=== PATIENT | female | born 1955 | race Two or more races ===

== ENCOUNTER 2017-12-03 19:27 | Emergency (ER) | payer SELFPAY ==
[~2017-12-03] VITALS: Ht 154.9 cm; Wt 65.8 kg
[~2017-12-03 19:27] MED LIST: CYCLOBENZAPRINE10 MG ORAL; GLUCOPHAGE1000 MG ORAL; GLUCOPHAGE850 MG ORAL; IBUPROFEN400 MG ORAL; KEFLEX500 MG ORAL; LISINOPRIL5 MG ORAL; NAPROXEN500 M2 ORAL; PHENAZOPYRIDIN100 MG ORAL
[2017-12-03] MEDS ORDERED: Cyclobenzaprine 10mg Tab ORAL ONE (19:30)
[2017-12-03] MEDS ORDERED: IBUPROFEN600 MG ORAL (19:31)
[2017-12-03] MEDS ORDERED: CYCLOBENZAPRINE10 MG ORAL (19:31)
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
[2017-12-03 21:07] VITALS: BP 146/85
[2017-12-03 21:27] VITALS: BP 146/85
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
== END 2017-12-03 21:45 | disposition home or self-care (01) ==
LOC: EDBD 19:27 → EMR 21:40
DX: R51 Headache (principal); M54.2 Cervicalgia; V43.62XA Car passenger injured in collision with other type car in traffic accident, initial encounter; Y92.410 Unspecified street and highway as the place of occurrence of the external cause; I10 Essential (primary) hypertension; E11.9 Type 2 diabetes mellitus without complications; Z98.1 Arthrodesis status
CPT/HCPCS: 70450; 72125; 99284

== ENCOUNTER 2018-07-28 15:01 | Emergency (ER) | payer BC ==
[~2018-07-28] VITALS: Ht 160 cm; Wt 77.1 kg
[~2018-07-28 15:01] MED LIST changes: +IBUPROFEN600 MG ORAL
[2018-07-28] MEDS ORDERED: HYDROcodone/Acetamin 7.5/325 tab ORAL ONE (16:00)
--- NOTE | 2018-07-28 16:30 | Diagnostic Imaging Report ---
Indication: Pain Knee pain/trauma 3 views of the right knee were obtained. Findings: No acute fracture, malalignment, or joint effusion are identified. Bones are osteopenic. Joint space is relatively well-maintained. Impression: Negative for acute findings.
--- NOTE | 2018-07-28 16:33 | Diagnostic Imaging Report ---
Indications: hip pain Findings: Two views of the right hip were obtained. No acute fracture is demonstrated. Alignment of the hip is within normal limits. Soft tissues are unremarkable. Impression: Negative for acute injury.
--- NOTE | 2018-07-28 16:48 | Emergency Room Report ---
History of Present Illness General Chief Complaint: Lower Extremity Injury Source: Patient Present Illness HPI 62-year-old female presents to the emergency department complaining of 10 out of 10 in severity pain to the lateral aspect of the right knee with moderate swelling, bruising and inability to bear weight. Patient reports that 2 days ago she slipped on the floor and landed on the bilateral knees sustaining bruising. Patient states that today however she was walking and her knee gave out and she had acute onset of her symptoms. Patient states that she did not fall to the ground today she was able to catch her self. Patient denies hitting her head, loss of consciousness, midline neck or back pain. She denies previous injury to this extremity other than fall prior to today. Pt also reports pain to the lateral aspect of the right hip as well. Denies numbness tingling or loss of sensation or gross motor movements of the extremities, incontinence of bowel or bladder. Denies CP, Palpitations, LOC, AMS, dizziness, Changes in Vision, weakness or a sudden severe headache. Allergies: Coded Allergies: No Known Allergies (Unverified , 12/27/15) Patient History Past Medical History: see triage record Past Surgical History: none Pertinent Family History: none Now: No Reviewed Nursing Documentation: PMH: Agreed; PSxH: Agreed Nursing Documentation-PMH Hx Hypertension: Yes Hx Diabetes: Yes Hx Cancer: No Hx Gastrointestinal Problems: No Review of Systems All Other Systems: negative except mentioned in HPI Physical Exam Vital Signs Date Time Temp Pulse Resp B/P (MAP) Pulse Ox O2 Delivery O2 Flow Rate FiO2 07/28/18 15:21 98.1 93 18 145/85 99 Room Air Sp02 EP Interpretation: reviewed, normal General Appearance: alert, GCS 15, non-toxic, moderate distress Head: normocephalic, atraumatic Eyes: bilateral eye normal inspection, bilateral eye PERRL ENT: hearing grossly normal, normal voice Neck: full range of motion, no bony tend Respiratory: lungs clear, normal breath sounds, speaking full sentences Cardiovascular #1: regular rate, rhythm Musculoskeletal: back normal, gait/station normal, normal range of motion, tender - anteriolateral TTP, Swelling and bruising to the Right knee, pt. unable to tolerate ligament testing. pt. also has some lateral right hip pain, no discrepancy in leg length. pt. has bruise to the anterior left knee as well. Neurologic: alert, oriented x3, responsive, motor strength/tone normal, sensory intact, speech normal, grossly normal Psychiatric: judgement/insight normal Skin: no rash, warm/dry, well hydrated, other - Bruises to the anterior knee bilaterally. Lymphatic: no adenopathy Medical Decision Making MODESTO Hdez is my supervising Physician whom patient management has been discussed with. Diagnostic Impression: Primary Impression: Knee effusion, right Additional Impression: Right knee injury Qualified Codes: S89.91XA - Unspecified injury of right lower leg, initial encounter ER Course 62-year-old female presents to the emergency department complaining of 10 out of 10 in severity pain to the lateral aspect of the right knee with moderate swelling, bruising and inability to bear weight. Patient reports that 2 days ago she slipped on the floor and landed on the bilateral knees sustaining bruising. Patient states that today however she was walking and her knee gave out and she had acute onset of her symptoms. Patient states that she did not fall to the ground today she was able to catch her self. Patient denies hitting her head, loss of consciousness, midline neck or back pain. She denies previous injury to this extremity other than fall prior to today. Pt also reports pain to the lateral aspect of the right hip as well. Denies numbness tingling or loss of sensation or gross motor movements of the extremities, incontinence of bowel or bladder. Denies CP, Palpitations, LOC, AMS, dizziness, Changes in Vision, weakness or a sudden severe headache. Ddx considered but are not limited to Fracture, dislocation, contusion, Sprain/ Strain/Spasm, ligamental or meniscus injury Vital signs: are WNL, pt. is afebrile H&PE are most consistent with musculoskeletal injury will perform imaging to r/ o fractures/dislocations.- Highly suspicious of ligamental injury due to clinical effusion and severity of clinical exam findings. ORDERS: - X-ray Right Knee 3 views - negative for fx, Dislocation, or significant soft tissue injury, per preliminary read in ED, and signed by MODESTO Wheatley , my supervising physician has reviewed, and agrees with my interpretation. ED INTERVENTIONS: -Knee Immobilizer splint applied to the right Knee by truck service technician. Pt. remains neurovascularly intact. --Patient is provided with crutches and instructed on their use -patient is given a copy of her x-rays DISCHARGE: At this time pt. is stable for d/c to home. Will provide printed patient care instructions, and any necessary prescriptions. Care plan and follow up instructions have been discussed with the patient prior to discharge. Other X-Ray Diagnostic Results Other X-Ray Diagnostic Results #1: X-Ray ordered: Right knee # of Views/Limited Vs Complete: 3 View Indication: Pain EP Interpretation: Yes MODESTO Xray: Interpretation reviewed, by supervising MD, and agrees with findings. Interpretation: no dislocation, no fractures, other - Effusion noted Impression: Other - abnormal Electronically Signed by: Ingrid Wheatley PA-C Other X-Ray Diagnostic Results #2: X-Ray ordered: Right HIP # of Views/Limited Vs Complete: 2 View Indication: Pain EP Interpretation: Yes MODESTO Xray: Interpretation reviewed, by supervising MD, and agrees with findings. Interpretation: no dislocation, no soft tissue swelling, no fractures Impression: No acute disease Last Vital Signs Date Time Temp Pulse Resp B/P (MAP) Pulse Ox O2 Delivery O2 Flow Rate FiO2 07/28/18 15:21 98.1 93 18 145/85 99 Room Air Disposition: HOME, SELF-CARE Condition: Stable Scripts Hydrocodone Bit/Acetaminophen 5-325* (NORCO 5-325*) 1 Each Tablet 1 TAB ORAL Q6H PRN for For Pain, #10 TAB 0 Refills Prov: Ingrid Wheatley 07/28/18 Patient Instructions: Combined Knee Ligament Sprain, Knee Effusion, Easy-to- Read Additional Instructions: Take medications as directed. Follow up with an FLIGHT MANAGER in 3-5 days, even if your symptoms have resolved. If symptoms persist MRI may be required at the discretion of your PCP or Ortho Specialist. --Please review list of primary care clinics, if you do not already have a primary care provider who can give you an Orthopedic Referral. Return sooner to ED if new symptoms occur, or current symptoms become worse. Do not drink alcohol, drive, or operate heavy machinery while taking [place] as this may cause drowsiness. - Please note that this Emergency Department Report was dictated using Birchboxcashier clerk technology software, occasionally this can lead to erroneous entry secondary to interpretation by the dictation equipment. Ingrid Wheatley Jul 28, 2018 16:48
[2018-07-28] MEDS ORDERED: NORCO 5-325 TA1 EACH ORAL (16:49)
[2018-07-28 17:17] VITALS: BP 135/89
== END 2018-07-28 17:17 | disposition home or self-care (01) ==
LOC: EMR 15:21
DX: S80.01XA Contusion of right knee, initial encounter (principal); W01.0XXA Fall on same level from slipping, tripping and stumbling without subsequent striking against object, initial encounter; Y92.9 Unspecified place or not applicable; M25.461 Effusion, right knee
CPT/HCPCS: 99284